=== PATIENT | male | born 1940 | race Caucasian/White ===

== ENCOUNTER 2017-04-13 09:33 | Outpatient (CLI) | payer OTHER ==
[~2017-04-13 09:33] MED LIST: KLONOPIN1 MG/TAB; LEVAQUIN750 MG PO; SINVASTATIN; URETRON D-S TAB1 TAB PO
== END 2017-04-13 09:41 | disposition home or self-care (01) ==
LOC: SONOGRAMA 09:33
DX: E04.2 Nontoxic multinodular goiter (principal)